=== PATIENT | male | born 1960 | race African-American/Black ===

== ENCOUNTER 2024-06-21 17:07 | Emergency (ER) | payer BC, MEDICAID ==
[~2024-06-21] VITALS: Ht 182.9 cm; Wt 87.9 kg
[2024-06-21 17:19] VITALS: O2SAT 97
[2024-06-21] MEDS ORDERED: CEPH500C2 MT (18:45)
[2024-06-21 18:50] VITALS: BP 158/90; PULSE 88; RESP 14; TEMP 36.72516; O2SAT 99
== END 2024-06-21 19:02 | disposition home or self-care (01) ==
LOC: ER 17:07
DX: S10.96XA Insect bite of unspecified part of neck, initial encounter (principal); L03.221 Cellulitis of neck; I10 Essential (primary) hypertension; E78.00 Pure hypercholesterolemia, unspecified; Z98.890 Other specified postprocedural states; Y92.89 Other specified places as the place of occurrence of the external cause
CPT/HCPCS: 99283